=== PATIENT | female | born 1975 | race Two or more races ===

== ENCOUNTER 2023-04-04 10:26 | Emergency (ER) | payer SELFPAY ==
[~2023-04-04] VITALS: Ht 152.4 cm; Wt 72.6 kg
--- NOTE | 2023-04-04 10:35 | NUR ---
[id number] FROM WORK C/O NAUSEA, LIGHTHEADEDNESS WHILE AT WORK. BG 415 [employer] APPROX 400ML NS GIVEN [employer] IN[employer]ER. BLOOD GLUCOSE 331 UPON ARRIVAL. PT STATED SHE HAD L SIDED FLANK PAIN SINCE LAST NIGHT AND TOOK A TYLENOL THIS MORNING AND WENT TO WORK. SHE STATES SHE THREW UP WHILE AT WORK AND THE PAIN WAS 2/10 AFTER VOMITING. PT STATED THAT SHE HAS HX OF KIDNEY STONES. PT ATTACHED TO MONITOR, JOYCE AYOUB.
--- NOTE | 2023-04-04 10:44 | NUR ---
URINE COLLECTED AND SENT
[2023-04-04] MEDS ORDERED: IV NS 0.9% 1,000 ML BAG IV ONE (11:00)
[2023-04-04 11:09] LABS: BILIRUBIN,URINE NEGATIVE (NEGATIVE); COLOR,URINE DARK YELLOW (YELLOW); LEUKOCYTE ESTERASE ,URINE 2+ (NEGATIVE); NITRITE, URINE NEGATIVE (NEGATIVE); PROTEIN,URINE 2+ mg/dl (NEGATIVE); UGLUCOSE 3+ mg/dL (NEGATIVE); UROBILINOGEN,URINE 0.2 EU/dL (0.2)
[2023-04-04 11:24] LABS: BACTERIA,URINE Moderate /HPF (None Seen); SQUAMOUS EPITHELIAL CELL,UR Few /HPF (None Seen); WBC,URINE 21-50 /HPF (0-3)
[2023-04-04] MEDS ORDERED: KETOROLAC TROMETHAMINE INJ 30 MG/ML VIAL IV ONE (11:30)
[2023-04-04 11:35] LABS: ALBUMIN 3.4 g/dL (3.4-5.0); BILIRUBIN,DIRECT 0.1 mg/dL (0.0-0.2); BILIRUBIN,TOTAL 0.4 mg/dL (0.2-1.0); CALCIUM, SERUM 9.4 mg/dL (8.5-10.1); POTASSIUM 4.3 mmol/L (3.5-5.1); TOTAL PROTEIN, SERUM 7.6 g/dL (6.4-8.2)
[2023-04-04 11:55] LABS: BASOPHILS % (AUTO) 0.3 % (0.0-2.0); EOSINOPHILS % (AUTO) 0.1 % (0.0-6.0); HEMATOCRIT 41 % (33-45); HEMOGLOBIN 13.5 g/dL (11.5-14.8); LYMPHOCYTES # (AUTO) 0.5 K/uL (0.8-4.8); LYMPHOCYTES % (AUTO) 2.9 % (20.0-44.0); MEAN CORPUSCULAR HGB CONC 33 g/dl (31.0-36.0); MEAN CORPUSCULAR VOLUME 84 fL (82-100); MONOCYTES # (AUTO) 0.7 K/uL (0.1-1.30); MONOCYTES % (AUTO) 3.7 % (2.0-12.0); NEUTROPHILS # (AUTO) 16.5 K/uL (1.8-8.9); PLATELET COUNT (AUTO) 262 K/uL (150-450); RED BLOOD CELL COUNT(AUTO) 4.89 MIL/uL (4.0-5.2); WHITE BLOOD COUNT (AUTO) 17.7 K/uL (4.3-11.0)
[2023-04-04] MEDS ORDERED: SULF1TAB48 PO (12:51)
[2023-04-04] MEDS ORDERED: ONDA4TAB11 PO (12:51)
--- NOTE | 2023-04-04 13:32 | NUR ---
IV removed. Catheter intact and site benign. Pressure and 4x4 applied to site. No bleeding noted.Patient discharged to home in stable condition. Written and verbal after care instructions given. Patient verbalizes understanding of instruction.
[2023-04-04 13:33] VITALS: BP 164/88
== END 2023-04-04 13:33 | disposition home or self-care (01) ==
LOC: ER 10:43
DX: R42 Dizziness and giddiness (principal); R11.2 Nausea with vomiting, unspecified; I10 Essential (primary) hypertension; E11.9 Type 2 diabetes mellitus without complications; J45.909 Unspecified asthma, uncomplicated; Z88.8 Allergy status to other drugs, medicaments and biological substances
CPT/HCPCS: 99284; 96360; 76770; 85025; 80048; 87086; 83690; 80076; 81001; 36415; 82962; J7030